=== PATIENT | female | born 1990 | race Caucasian/White ===

== ENCOUNTER 2022-07-31 10:26 | Outpatient (CLI) | payer OTHER, SELFPAY ==
[2022-07-31 15:08] LABS: Albumin* 4.5 g/dL (3.3-5.0)
[2022-07-31 15:09] LABS: Chloride* 106 mmol/L (96-114); Potassium* 4.5 mmol/L (3.6-5.1); Sodium* 139 mmol/L (135-149)
[2022-07-31 15:11] LABS: Bilirubin Total* 0.5 mg/dL (0.1-1.5); Carbon Dioxide* 29 mmol/L (20-32); Cholesterol* 213 mg/dL (90-199); Creatinine* 0.5 mg/dL (0.5-1.5); Estimated Glomerular Filt Rate 127 ml/min; Total Protein* 7.2 g/dL (6.0-8.3)
[2022-07-31 15:12] LABS: Alanine Aminotransferase* 26 U/L (4-35); Alkaline Phosphatase* 44 U/L (40-150); Aspartate Amino Transferase* 29 U/L (12-35); Blood Urea Nitrogen* 14 mg/dL (5-24); Calcium* 8.9 mg/dL (8.4-10.6); Glucose* 83 mg/dL (60-115); HDL Cholesterol* 60 mg/dL (>=50); LDL Cholesterol Calculated 137 mg/dL (<100); Triglycerides* 78 mg/dL (40-149)
[2022-07-31 15:26] LABS: Vitamin D 25 Hydroxy* 40 ng/mL (30-80)
[2022-07-31 16:00] LABS: Vitamin B12* 856 pg/mL (243-894)
== END 2022-07-31 10:27 | disposition home or self-care (01) ==
PROVIDERS: PCP Physician Assistant Medical; Visit Provider Family Medicine
DX: Z00.00 Encounter for general adult medical examination without abnormal findings (principal); R63.5 Abnormal weight gain; R53.83 Other fatigue; Z13.6 Encounter for screening for cardiovascular disorders
CPT/HCPCS: 80053; 80061; 82306; 82607; 84443

== ENCOUNTER 2023-02-11 18:24 | Outpatient (CLI) | payer OTHER, SELFPAY | END 2023-02-11 18:25 | disposition home or self-care (01) | LOC: NFLDREF 02-13 10:29 | PROVIDERS: PCP Family Medicine; Referring Provider Family Medicine; Visit Provider Nurse Practitioner Family | DX: R30.0 Dysuria (principal) | CPT/HCPCS: 87086 ==

== ENCOUNTER 2023-10-28 11:26 | Outpatient (CLI) | payer OTHER, SELFPAY | END 2023-10-28 11:27 | disposition home or self-care (01) | PROVIDERS: PCP Physician Assistant Medical; Visit Provider Physician Assistant Medical | DX: Z00.00 Encounter for general adult medical examination without abnormal findings (principal) | CPT/HCPCS: 80053; 80061; 84443 ==

== ENCOUNTER 2024-11-29 11:35 | Outpatient (CLI) | payer OTHER, SELFPAY | END 2024-11-29 11:36 | disposition home or self-care (01) | PROVIDERS: PCP Physician Assistant Medical; Visit Provider Emergency Medicine | DX: R59.9 Enlarged lymph nodes, unspecified (principal) | CPT/HCPCS: 86140 ==